=== PATIENT | male | born 1990 | race Caucasian/White ===

== ENCOUNTER 2016-09-26 16:43 | Inpatient (IN) | payer OTHER ==
--- NOTE | ~2016-09-26 | HP ---
Unit #: [id number] #: [id number] Patient: ALISIA CRESPO [id number] [address] [place], [place] [address] [id number] I MR#: [id number] NAME: ALISIA CRESPO. ROOM: 46334 Age: 26 Sex: M Admission Date: 09/27/2016 : 1990 Attending Physician: Nishi Villalba M.D. Primary Care Physician: No Primary Care Physician HISTORY AND PHYSICAL CHIEF COMPLAINT Lumbar discitis and osteomyelitis. HISTORY This pleasant 26-year-old male with history of epidural and paraspinous abscesses in 2016, history of MRSA, is admitted for lumbar diskitis and osteomyelitis. The patient was admitted to [facility] in 2015 for epidural and paraspinous abscesses requiring I and D along with what sounds to be a six week course of clindamycin and daptomycin. Reports negative ERIK. Was well until two months ago when he developed increasing stiffness and pain over the lumbar spine with pain into the left leg associated with left leg weakness and more recently tingling of the feet bilaterally. No bladder or bowel dysfunction. Over the past two days, has been experiencing fevers. The patient has been purchasing pain pills for his pain. Did inject heroin on a couple of occasions but states this was after his back pain started, not before the back pain began. He presented to this emergency department where an MRI scan performed shows discitis and osteomyelitis of L3-L4 with compression deformity of L4, and kyphotic deformity of L4-L5. Prior abscesses are no longer present. In the ER, the patient was bolused with IV fluids, given Toradol. Vancomycin and gentamicin were ordered by the ER physician. PAST MEDICAL HISTORY Admission to [facility] 02/2016 for paraspinous abscess and epidural abscess requiring I and D, and required additional daptomycin and clindamycin possibly for four to six weeks. Patient reports a negative ERIK. States that he required right finger surgery for an MRSA abscess over the right index finger. ALLERGIES None. HOME MEDICATIONS None. FAMILY HISTORY Negative for heart disease. SOCIAL HISTORY The patient is living with his mother. He smokes one pack per day of tobacco, does not drink alcohol. Has injected drugs in the past, but has not injected recently. Is buying pain pills on the street. Unit #: [id number] #: [id number] Patient: ALISIA CRESPO REVIEW OF SYSTEMS Notable for increasing back pain, left leg pain, fevers, left leg weakness, epidural and paraspinous abscesses, tobacco abuse, drug abuse. All other systems were reviewed and are otherwise negative. PHYSICAL EXAMINATION GENERAL APPEARANCE: Pleasant, thin, 26-year-old male who looks to be uncomfortable. VITAL SIGNS: Temperature 99, pulse 118, respirations 16, blood pressure 139/86. O2 saturation 100% on room air. HEENT: Eyes PERRLA. Extraocular muscles are intact. Pharynx is benign. NECK: Supple without adenopathy or thyromegaly. CHEST: Clear. CARDIAC: Normal S1 and S2 without murmur. ABDOMEN: Bowel sounds are present. There is left groin/left lower quadrant tenderness without rebound or guarding. No hepatosplenomegaly or masses. BACK: Reveals slightly kyphotic deformity over the lower lumbar spine with tenderness around this region, particularly just to the left of the lower lumbar spine. Negative straight leg raising. EXTREMITIES: I am able to move the left hip with minor left hip pain. No pedal edema. No splinter hemorrhages noted over the fingernail beds. Old tract dietz right AC area. LYMPHS: No adenopathy noted. NEUROLOGIC EXAM: The patient is awake, alert, oriented. Cranial nerves are intact. He has good strength throughout. Negative straight leg raising on the left. DIAGNOSTIC STUDIES LABORATORY: Admission labs - hematocrit is 39.8, normal white count and platelet count. Normal coags. SMA-7 is normal. Urine tox screen positive for amphetamines, marijuana, opiates. Urinalysis is negative. MRI scan of the LS spine shows new compression deformity of L4 with discitis and osteomyelitis L3-L5. Kyphotic deformity of L4-L5. Previous abscesses noted in 2016 are no longer present. ASSESSMENT 1. L3-L5 discitis/osteomyelitis in patient with history of methicillin resistant Staph aureus, epidural and paraspinous abscesses in 2016 requiring incision and drainage. 2. Polysubstance abuse. 3. Complaints of left lower quadrant pain. 4. Tobacco abuse. PLANS 1. Old records from [facility]. 2. Blood cultures. 3. Vancomycin and cefepime pending cultures. 4. Spine surgery consulted. Will be seeing in the morning. 5. Gentle pain control. 6. Infectious disease to see. Unit #: [id number] #: [id number] Patient: ALISIA CRESPO 7. DVT prophylaxis. 8. CT scan of the pelvis. Dictated by Keith Nolan/df TD: 09/27/2016 05:15 JOB #: [id number] HISTORY AND PHYSICAL Page 1 of 1 X Nishi Villalba MD X HISTORY AND PHYSICAL
--- NOTE | ~2016-09-26 | CT105 ---
[facility] A Service of [facility] RADIOLOGY TEXT RESULTS PATIENT: ALISIA CRESPO LOCATION: [facility] 218-01 : [birth year] UNIT #: [id number] AGE: [address]: Kristopher Jain MD SEX: M ORDER DR: [id number] [facility] [address] [facility]. [place], [place] [address] [id number] I MR#: [id number] Acc #: [id number] NAME: ALISIA CRESPO : 1990 SEX: M STUDY DATE/TIME: 09/27/2016 9:47 UNIT: CEDOF ROOM: 68880 STUDY DESCRIPTION: CT Pelvis W Cont Attending Physician: Kristopher Jain M.D. Ordering Physician: Nishi Villalba M.D. Primary Care Physician: No Primary Care Physician MEDICAL IMAGING REPORT This report is preliminary unless electronic signature is present EXAM CT pelvis with contrast HISTORY Left lower quadrant pain x2 months, worse over the last 2 days. History of lumbar discitis and osteomyelitis. COMPARISON MRI of the lumbar spine 09/26/2016 and lumbar spine films 02/07/2016. FINDINGS Axial images were performed through the pelvis following IV and oral contrast. Multiplanar reconstructed images were reviewed at a workstation. This CT exam was performed with one or more of the following radiation dose reduction techniques: automatic exposure control, adjustment of mA and/or kV according to patient size, and iterative reconstruction. FINDINGS Examination demonstrates deformity of the L4 vertebral body with near complete collapse of the L4 vertebral body with sclerosis of the remaining superior aspect of the L4 vertebral body. This most likely represents the sequela of chronic discitis and vertebral osteomyelitis. This has shown progression when compared to the patient's lumbar spine films from 02/07/2016. There is mild anterolisthesis L4 on L5 with a focal gibbous deformity. Defect in the posterior elements probably related to posterior decompression. Mild prominence of the paravertebral soft tissues may represent some focal inflammatory change, but a discrete abscess is not identified. Please see separate MRI report of the lumbar spine for additional details. Visualized small and large bowel unremarkable. Bladder appears normal. Aorta and vascular structures unremarkable. No pelvic mass lesions identified. The hip joints appear normal. [facility] A Service of [facility] RADIOLOGY TEXT RESULTS PATIENT: ALISIA CRESPO LOCATION: A 218-01 : [birth year] UNIT #: [id number] AGE: [address]: Kristopher Jain MD SEX: M ORDER DR: IMPRESSION 1. Marked deformity of the visualized L4 vertebral body with focal gibbous deformity or focal kyphosis. Changes compatible with patient's history of known discitis and vertebral osteomyelitis with progressive destruction of the L4 vertebral body. Please see MRI report of lumbar spine for additional details. 2. No evidence of intrapelvic pathology to account the patient's left lower quadrant pain. In particular, no discernible abscess. Dictated by... Juan Walker M.D. THIS IS AN ELECTRONICALLY VERIFIED REPORT Juan Walker M.D. at 09/27/2016 3:42 PM Raghu TD: 09/27/2016 12:06 JOB #: [id number] MEDICAL IMAGING REPORT Page 1 of 1 COPY
--- NOTE | ~2016-09-26 | DS ---
Unit #: [id number] #: [id number] Patient: ALISIA CRESPO [id number] [address] [place], [place] [address] [id number] I MR#: [id number] NAME: ALISIA CRESPO. ROOM: 218 Age: 26 Sex: M Admission Date: 09/26/2016 : 1990 Discharge Date: 09/28/2016 Attending Physician: Kristopher Jain M.D. Primary Care Physician: No Primary Care Physician DISCHARGE SUMMARY PLACE OF TRANSFER [facility]. REASON FOR ADMISSION Lumbar diskitis/osteomyelitis. HISTORY OF PRESENT ILLNESS/HOSPITAL COURSE The patient is a very pleasant 26-year-old male with an underlying and prior history of epidural/perispinous abscess in 2015, MRSA, who underwent an incision and drainage as well as surgical intervention at that time, apparently was admitted in 2016 for above and had ID consultation and was placed on IV antibiotics for what he describes as approximately six weeks. He states that afterwards he went home. Off and on for the next few weeks to months, he had been doing well. However, he had increased pain in his lower back. He reverted back and began using IV drugs for pain relief after he was turned down at several facilities and was unable to get pain medications. On September 27, 2016, he states the pain was so severe to the point where he could no longer walk. He presented to the hospital for further evaluation. While here, he underwent a MRI scan which showed diskitis and osteomyelitis at L3-L5. Prior abscesses were no longer present but there was worsening when compared to prior study from last year. There was interval new significant compression deformity of L4 with 70% to 80% maximal vertebral body height loss and 90% at the left lateral aspect. Diskitis and osteomyelitis, as mentioned above, was also noted. There was no obvious drainable abscess noted on this particular MRI. There was a kyphotic deformity with the apex at L4-L5 without any significant anterior epidural abscess. Through this hospital course, ID services were consulted. Dr. Bustillo has already seen and evaluated the patient, placed the patient on antibiotics as detailed below. We have also placed consultation to Dr. rGossman of spine services, who recommended transfer to [facility] both for IV antibiotics as well as possible surgical intervention. At this point in time, patient will be transferred for ongoing care. FINAL DISCHARGE DIAGNOSES 1. Vertebral osteomyelitis. 2. Lumbar diskitis. 3. Compression deformity L4. 4. IV drug abuse. 5. Intractable back pain. DISCHARGE/TRANSFER MEDICATIONS 1. Florastor 250 mg p.o. b.i.d. Unit #: [id number] #: [id number] Patient: ALISIA CRESPO 2. Trazodone 50 mg p.o. nightly. 3. Percocet 10/325 one tablet p.o. q.4 p.r.n. 4. Baclofen 10 mg p.o. q.8 p.r.n. 5. Vancomycin 1 g IV q.12 per pharmacy. 6. Cefepime 2 g IV q.12, both antibiotics at the recommendation of Dr. Bustillo of infectious disease services. DISCHARGE CONDITION Stable. Dictated by... Keith Vail/stacie TD: 09/28/2016 11:35 JOB #: [id number] DISCHARGE SUMMARY Page 1 of 1 X Kristopher Jain MD X DISCHARGE SUMMARY
--- NOTE | ~2016-09-26 | CO ---
Unit #: [id number] #: [id number] Patient: ALISIA CRESPO [id number] [address] [place], [place] [address] [id number] I MR#: [id number] NAME: ALISIA CRESPO. ROOM: 03187 Age: 26 Sex: M Admission Date: 09/27/2016 : 1990 Attending Physician: Kristopher Jain M.D. Primary Care Physician: No Primary Care Physician Consultation Date: 09/27/2016 CONSULTATION REPORT REASON FOR CONSULTATION Antibiotic management in a patient with suspected lumbar diskitis. HISTORY OF PRESENT ILLNESS This is a 26-year-old male who is known to our service in March 2016. At that time the patient had a history of IV drug abuse, MRSA sepsis and paraspinal abscess, status post incision and drainage with associated psoas abscess. The patient completed IV daptomycin 06/26/2015. The patient at that time also had a finger abscess, but it did not require surgical intervention. The patient now is admitted to the hospital after several months of increasing back pain. The patient reports that he was taking pills to try to control the pain. He denied any trauma to the spine. When the pills did not suffice for his increasing back pain he did resort to relapsing back to IV heroin. The patient reports some progressive fever at home as well as some chills and sweats on the day of admission. The patient denied any chest pain, nausea, vomiting or diarrhea. Since here the patient had an MRI of his spine that was consistent with L3-L4 diskitis without any evidence of abscess at this time. The patient also complained of some intermittent left lower quadrant pain and he was sent for a CT scan of his pelvis. However, this result is not back yet. Blood cultures are currently pending. He was given vancomycin, gentamycin and cefepime and infectious disease was asked to see this patient. Spine surgery is also awaiting to evaluate him today. PAST MEDICAL HISTORY As previously stated in the history of present illness. He had this MRSA abscess with paraspinal infection in the past with psoas abscess, status post incision and drainage and six weeks of antibiotic therapy with daptomycin. At that time ERIK was negative. There was some right finger infection as well. SOCIAL HISTORY Polysubstance abuse with tobacco, pills and IV heroin. ALLERGIES No known drug allergies. CURRENT MEDICATIONS 1. Gentamycin times 1. 2. Vancomycin and cefepime. For fuehrer medications, please refer to the patient's MAR. REVIEW OF SYSTEMS Unit #: [id number] #: [id number] Patient: ALISIA CRESPO Negative except for as previously mentioned above. PHYSICAL EXAMINATION GENERAL: This is a no apparent distress male sitting in the bed comfortably. VITALS: Temperature 97.4 with no fever since admission, pulse 100, blood pressure 124/79 and respiratory rate 16. HEENT: Pupils are equal. NECK: Supple. LUNGS: Clear to auscultation bilaterally with no wheezes or rhonchi noted. HEART: S1 and S2. Regular rate and rhythm. ABDOMEN: Positive bowel sounds. Soft and nontender with no organomegaly appreciated. Minimal tenderness in the left lower quadrant. SPINE: No open wound. There is positive tenderness in his lumbar region. DIAGNOSTIC STUDIES IMAGING: MRI of his spine, please see full report for complete details. It does show new significant compression deformity at L4 with almost 90% vertebral body height loss. Diskitis and osteomyelitis at L3-L4, L4-L5 levels with bone edema, with enhancing soft tissue, without evidence of obvious abscess or fluid collection. Kyphotic deformity at L4-L5, without epidural abscess. CT scan of the pelvis is currently pending. LABORATORY: BUN 11, creatinine 0.7, sodium 138, potassium 3.9, chloride 104, CO2 30, bilirubin 0.6, AST 22, ALT 34, white blood cell count 4.0, hemoglobin 11.6, hematocrit 37.4, platelets 166. HIV screen was nonreactive. Urine tox screen positive for amphetamines, marijuana and opiates. Urinalysis is unremarkable. Blood cultures are currently pending. ASSESSMENT This is a 26-year-old male with known IV drug abuse and MRSA paraspinal infection, status post drainage in 03/2016 along with a psoas abscess. The patient completed IV daptomycin 06/26/2015. The patient at that time was also noted to have a finger abscess. The patient now developed progressive pain without insult or injury to the spine. The patient reports that he was taking pain pills which did not subside the pain, so he relapsed to heroin. The patient's MRI now shows progressive diskitis in the L3-L4, L4-L5 region and spine surgery has been consulted and agree the patient will likely require spine surgery. Will continue the patient on vancomycin and cefepime, but hold any additional gentamycin. Will ask the nursing staff to call with any positive blood cultures. The patient may have also had relapse of MRSA bacteremia/sepsis. Will check inflammatory markers at the next blood draw, including CRP and sedimentation rate. Will have the nursing staff also check a CBC and BMP in the a.m. and will follow along with the CT scan of the pelvis results. However, suspect this may be related pain to his spinal infection or sciatica. Thank you for allowing us to participate in the care of this patient. Further recommendation to follow pending the patient's clinical course. Dictated by... Soraya IrwinPAline for Avni Bustillo M.D. Unit #: [id number] #: [id number] Patient: ALISIA CRESPO SLS/gz TD: 09/27/2016 10:48 JOB #: [id number] CONSULTATION REPORT Page 1 of 1 X X CONSULTATION REPORT
--- NOTE | ~2016-09-26 | MR112 ---
[facility] A Service of [facility] RADIOLOGY TEXT RESULTS PATIENT: ALISIA CRESPO LOCATION: [facility] 218-01 : [birth year] UNIT #: [id number] AGE: [address]: Kristopher Jain MD SEX: M ORDER DR: [id number] [facility] [address] [facility]. [place], [place] [address] [id number] I MR#: [id number] Acc #: [id number] NAME: ALISIA CRESPO. : 1990 SEX: M STUDY DATE/TIME: 09/26/2016 21:15 UNIT: CEDOF ROOM: 95838 STUDY DESCRIPTION: MR Lumbar WWo Contrast Attending Physician: Nishi Villalba M.D. Ordering Physician: Shayan Delacruz M.D. Primary Care Physician: Primary Care Physician No MRI CENTER REPORT This report is preliminary unless electronic signature is present. EXAM MRI of the lumbar spine with and without contrast, 09/26/2016 COMPARISON MRI lumbar spine with and without contrast dated 02/15/2016. HISTORY Low back pain for the last 2 months with acute pain since yesterday. Pain with tingling of both feet, worse on the left. History of abscess in the lumbar spine 1 year ago. FINDINGS Multisequence multiplanar imaging of the lumbar spine was obtained with and without contrast. GFR measured greater than 60. 14 mL of MultiHance was administered intravenously. Significantly abnormal study. There is interval significant destruction and loss of height of L4 vertebral body. Peripherally enhancing soft tissue is noted within L3-4, L4-5 disc with significant surrounding inflammatory/infectious soft tissue in the pre and paravertebral soft tissues extending from the level of L3 to the level of S1, most prominent at the level of L3-4 to L5. There is significant inflammatory enhancing soft tissue noted in the pre and paravertebral soft tissues extending to the medial aspect of bilateral psoas muscle and into bilateral neural foramina at the level of L3-4, L4-5 and to a lesser degree at L5-S1. There is a kyphotic deformity due to L4 vertebral body height loss in the mid to left lateral aspect, with the apex at L4-5. There is probably some enhancing soft tissue and adjacent posterior superior endplate of L5 into bilateral subarticular to foraminal region. No drainable anterior epidural abscess is seen. The nerve roots of the cauda equina do not appear to have significant enhancement or evidence of arachnoiditis. There is edema involving bilateral L4 and L5 pedicles. Significant interval worsening. [facility] A Service of [facility] RADIOLOGY TEXT RESULTS PATIENT: ALISIA CRESPO LOCATION: [facility] 218-01 : [birth year] UNIT #: [id number] AGE: [address]: Kristopher Jain MD SEX: M ORDER DR: T12-L1, L1-2: Unremarkable. L2-3: Concentric disc bulge with borderline size to mild canal stenosis. No significant neural foraminal narrowing. Mild edematous inflammatory changes are extending into the paraspinal muscles from the level below. L3-4, L4-5: Significant abnormality as described above with enhancing soft tissue at the disc and extending to the nearby pre and paravertebral soft tissues and bilateral neural foramina. Edema is also seen throughout the compressed L4, most of L5 and half of L3 vertebral bodies. Paraspinal posterior muscles also demonstrate edematous change. L5-S1: No focal disc herniation, canal stenosis or neural foraminal narrowing. The inflammatory/infectious changes within the paraspinal muscles around the spine are extending from the level above to this level. IMPRESSION 1. Significantly abnormal study. 2. There is significant worsening when compared to the prior study from last year. 3. There is interval new significant compression deformity of L4 with 70% to 80% maximal vertebral body height loss and even 90% at the left lateral aspect. It is relatively better in the right lateral aspect of the vertebral body. 4. Diskitis and osteomyelitis is noted at L3-4, L4-5 levels with significant bone edema from L3 to L5 within the vertebral bodies extending to the pedicles and posterior column. Surrounding significant enhancing soft tissue is noted in the pre and paravertebral regions without any obvious drainable abscess collections. 5. There is kyphotic deformity with the apex at L4-5 without any significant anterior epidural abscess or anterior epidural significant spread of acute infection. There is some inflammatory soft tissue around the thecal sac, probably without definitive evidence of arachnoiditis. 6. Continued followup is suggested as per the clinical need. Previously noted abscesses in 2016 are now not seen in the left paraspinal muscles. 7. Attempts are made to contact Dr. Shayan Delacruz at 10:30 p.m. on 09/26/2016. Findings were discussed with Dr. Manuel Yadav, the ER physician who was covering for Dr. Delacruz within the next 30 minutes. Dictated by... Seymour Broussard M.D. THIS IS AN ELECTRONICALLY VERIFIED REPORT Seymour Broussard M.D. at 09/28/2016 6:05 PM CPR/ljd STS. [facility] A Service of [facility] RADIOLOGY TEXT RESULTS PATIENT: ALISIA CRESPO LOCATION: [place] [address] : [birth year] UNIT #: [id number] AGE: [address]: Kristopher Jain MD SEX: M ORDER DR: TD: 09/27/2016 00:38 JOB #: [id number] MRI CENTER REPORT Page 1 of 1 COPY
[~2016-09-26 16:43] MED LIST: FLEXERIL PO; HYDROCODON-ACE1 EAC7 PO; MEDROL DOSEPAK4 MG PO
[2016-09-26 18:52] LABS: BASOPHIL% 0.5 % (0-2.5); EOSINOPHIL# 0.1 X10e3 (0-0.7); EOSINOPHIL% 1.3 % (0.0-7.0); HEMATOCRIT 39.8 % (38.0-50.0); HEMOGLOBIN 12.7 gm/dL (13.0-16.0); LYMPHOCYTE# 2.2 X10e3 (1.0-3.5); LYMPHOCYTE% 39.8 % (17.0-45.0); MEAN CELL VOLUME 79.1 FL (83-96); MEAN CORPUSCULAR HEMOGLOBIN 25.2 PG (28-34); MEAN CORPUSCULAR HGB CONC 31.9 g/dL (30-36); MEAN PLATELET VOLUME 8.7 FL (6.5-11.5); MONOCYTE# 0.4 X10e3 (0-1.0); MONOCYTE% 7.6 % (3.0-12.0); NEUTROPHIL# 2.8 X10e3 (1.5-7.1); NEUTROPHIL% 50.8 % (40-75); PLATELET COUNT 180 X10e3 (140-420); RED BLOOD COUNT 5.03 X10e (3.90-5.60); RED CELL DISTRIBUTION WIDTH 16.8 % (11.0-15.5); WHITE BLOOD COUNT 5.5 X10e3 (4.0-10.5)
[2016-09-26 18:56] LABS: DIFF IND NO
[2016-09-26 19:05] LABS: BUN/CREATININE RATIO 12.5; CALCIUM SERUM 8.8 mg/dL (8.4-10.2); CREATININE SERUM 0.8 mg/dL (0.6-1.4); GLOM FILT RATE Estimated 121.6 mL/min (>60); POTASSIUM 3.8 mmol/L (3.5-5.1)
[2016-09-26 19:09] LABS: PARTIAL THROMBOPLASTIN TIME 30.3 SECONDS (23.5-31.3); PROTHROMBIN TIME (PATIENT) 10.6 SECONDS (9.6-11.5)
[2016-09-26 20:45] LABS: URINE SOURCE CLEAN CATCH
[2016-09-26 20:50] LABS: URINE APPEARANCE TURBID; URINE BILIRUBIN NEG (NEG); URINE BLOOD NEG (NEG); URINE COLOR DK YELLOW; URINE GLUCOSE NEG (NEG); URINE KETONE NEG (NEG); URINE LEUKOCYTE ESTERASE NEG (NEG); URINE NITRATE NEG (NEG); URINE PH 7.5 (5-8); URINE PROTEIN NEG (NEG)
[2016-09-26 20:54] LABS: CULTURE INDICATED? NO
[2016-09-26 21:03] LABS: AMPHETAMINE POS (NEG); BARBITURATES NEG (NEG); BENZODIAZEPINES NEG (NEG); COCAINE NEG (NEG); MARIJUANA POS (NEG); OPIATES POS (NEG); TRICYCLIC ANTIDEPRESSANTS NEG (NEG); U METHADONE NEG (NEG)
[2016-09-27 04:31] LABS: ALBUMIN SERUM 2.7 g/dL (3.5-5.0); BILIRUBIN,TOTAL 0.6 mg/dL (0.2-2.0); BUN/CREATININE RATIO 15.71; CALCIUM SERUM 8.5 mg/dL (8.4-10.2); CREATININE SERUM 0.7 mg/dL (0.6-1.4); GLOM FILT RATE Estimated 128.5 mL/min (>60); POTASSIUM 3.9 mmol/L (3.5-5.1); PROTEIN TOTAL SERUM 6.9 g/dL (6.0-8.3)
[2016-09-27 04:33] LABS: BASOPHIL% 0.8 % (0-2.5); DIFF IND NO; EOSINOPHIL# 0.1 X10e3 (0-0.7); EOSINOPHIL% 2.7 % (0.0-7.0); HEMATOCRIT 37.4 % (38.0-50.0); HEMOGLOBIN 11.6 gm/dL (13.0-16.0); LYMPHOCYTE# 2.2 X10e3 (1.0-3.5); LYMPHOCYTE% 55.3 % (17.0-45.0); MEAN CELL VOLUME 79.2 FL (83-96); MEAN CORPUSCULAR HEMOGLOBIN 24.6 PG (28-34); MEAN PLATELET VOLUME 8.9 FL (6.5-11.5); MONOCYTE# 0.4 X10e3 (0-1.0); MONOCYTE% 9.5 % (3.0-12.0); NEUTROPHIL# 1.3 X10e3 (1.5-7.1); NEUTROPHIL% 31.7 % (40-75); PLATELET COUNT 166 X10e3 (140-420); RED BLOOD COUNT 4.73 X10e (3.90-5.60); RED CELL DISTRIBUTION WIDTH 16.8 % (11.0-15.5)
[2016-09-28 06:30] LABS: HEMATOCRIT 37.7 % (38.0-50.0); HEMOGLOBIN 11.9 gm/dL (13.0-16.0); MEAN CELL VOLUME 78.6 FL (83-96); MEAN CORPUSCULAR HEMOGLOBIN 24.9 PG (28-34); MEAN CORPUSCULAR HGB CONC 31.7 g/dL (30-36); MEAN PLATELET VOLUME 8.8 FL (6.5-11.5); RED BLOOD COUNT 4.79 X10e (3.90-5.60); RED CELL DISTRIBUTION WIDTH 16.7 % (11.0-15.5); WHITE BLOOD COUNT 5.1 X10e3 (4.0-10.5)
[2016-09-28 07:04] LABS: BUN/CREATININE RATIO 12.85; CALCIUM SERUM 8.6 mg/dL (8.4-10.2); CREATININE SERUM 0.7 mg/dL (0.6-1.4); GLOM FILT RATE Estimated 128.5 mL/min (>60); POTASSIUM 4.1 mmol/L (3.5-5.1)
== END 2016-09-28 12:55 | DRG 541 ==
LOC: CED 16:43 → C2A 23:50 → CED 23:50 → C2A 23:50 → CEDOF 23:50 → CED 09-27 00:04 → CEDOF 09-27 00:04 → C2A 09-27 13:31 → CEDOF 09-27 13:31 → C2A 09-28 12:55
PROVIDERS: Emergency Medicine; Family Medicine; Internal Medicine
DX: M46.26 Osteomyelitis of vertebra, lumbar region (principal); F17.210 Nicotine dependence, cigarettes, uncomplicated; M46.46 Discitis, unspecified, lumbar region; F19.10 Other psychoactive substance abuse, uncomplicated; R10.32 Left lower quadrant pain
CPT/HCPCS: 36415; 72158; 72193; 80048; 80053; 80307; 81003; 85025; 85027; 85610; 85652; 85730; 86140; 87040; 87806; 96361; 96374; 99285; A9577; J0692; J1580; J1885; J3370; Q9967

== ENCOUNTER 2016-10-15 14:27 | Emergency (ER) | payer OTHER | END 2016-10-15 16:53 | disposition left against medical advice (07) | LOC: CED 14:27 | DX: Z53.21 Procedure and treatment not carried out due to patient leaving prior to being seen by health care provider (principal) ==